=== PATIENT | female | born 1970 | race Caucasian/White ===

== ENCOUNTER 2021-05-31 15:33 | Emergency (ER) | payer OTHER ==
[2021-05-31 16:38] LABS: HEMOGLOBIN 13.4 gm/dl (12.3-15.3); RED BLOOD COUNT 4.75 M/UL (4.00-5.10); WHITE BLOOD COUNT 9.9 K/UL (4.5-11.0)
[2021-05-31 17:02] LABS: BUN/CREATININE RATIO 16 (0-10)
[2021-05-31] MEDS ORDERED: VISTARIL 25 MG25 MG PO (22:20)
== END 2021-06-01 04:05 | disposition short-term general hospital (02) ==
LOC: ER1 15:33
PROVIDERS: Physician Assistant
DX: R07.2 Precordial pain (principal); R10.13 Epigastric pain; Z88.1 Allergy status to other antibiotic agents; Z79.899 Other long term (current) drug therapy; Z20.822 Contact with and (suspected) exposure to COVID-19
CPT/HCPCS: 71045; 80053; 80307; 81001; 82550; 82553; 83690; 83874; 84484; 85025; 85379; 93005; 99285; Q0177; Q9967; U0002